=== PATIENT | female | born 1975 | race Hispanic/Latino ===

== ENCOUNTER 2020-10-26 16:44 | Emergency (ER) | payer OTHER ==
[~2020-10-26] VITALS: Ht 167.6 cm; Wt 181.4 kg
[2020-10-26 16:46] VITALS: BP_SYST 176; BP_SYST 179; BP_DIAS 106
== END 2020-10-27 00:42 | disposition left against medical advice (07) ==
LOC: EDH 16:44
DX: R22.1 Localized swelling, mass and lump, neck (principal); Z53.21 Procedure and treatment not carried out due to patient leaving prior to being seen by health care provider